=== PATIENT | male | born 1990 | race Caucasian/White ===

== ENCOUNTER 2022-06-28 22:32 | Emergency (ER) | payer SELFPAY ==
[2022-06-28 22:28] VITALS: BP 152/101; PULSE 108; RESP 16; TEMP 36.7; O2SAT 99
--- NOTE | 2022-06-28 22:49 | ED.ALCOHOL ---
HPI - Alcohol General Chief Complaint: Alcohol Stated Complaint: etoh intoxication History of Present Illness HPI narrative: 31-year-old male no medical problems presents to the emergency room for evaluation EtOH intoxication. Patient was [place] intoxicated by local law enforcement. Patient stated that he had had too much to drink tonight and vomited multiple times. Patient denies any injuries. Patient is alert and oriented x3, able to verbalize where he is and able to call family to be at the bedside. Patient denies taking any recreational drugs. Related Data Allergies Allergy/AdvReac Type Severity Reaction Status Date / Time No Known Allergies Allergy Mild Verified 05/13/08 14:46 Review of Systems Review of Systems: CONSTITUTIONAL: Denies fever, chills, or sweats. EYES: Denies visual changes, redness, or discharge. ENT: Denies rhinorrhea, congestion, sore throat, or otalgia. CARDIOVASCULAR: Denies chest pain, palpitations, or edema. RESPIRATORY: Denies cough or dyspnea. GASTROINTESTINAL: Denies abdominal pain, nausea, vomiting, or diarrhea. GENITOURINARY: Denies dysuria or hematuria. SKIN: Denies rash or itching. MUSCULOSKELETAL: Denies back pain, joint pain, or myalgia. NEUROLOGIC: Denies headache, numbness, dizziness, or weakness. PSYCHIATRIC: Denies anxiety or depression. Exam Narrative: GENERAL: Well-appearing, well-nourished, no physical limitations, and in no acute distress. HEAD: Normocephalic, atraumatic. EYES: Conjunctivae normal, PERRLA and EOMI. CHEST: Clear to auscultation. No respiratory distress. No wheezes rales or rhonchi. HEART: Regular rate and rhythm. No murmur heard. Normal peripheral pulses. ABDOMEN: Soft, nontender, nondistended, normal active bowel sounds.M EXTREMITIES: Normal range of motion. No edema. No clubbing or cyanosis SKIN: Warm, dry, no rash. No noted wounds NEURO: No focal deficits. Alert and oriented x3. MAEW. CN's II-XI intact bilaterally, normal gait PSYCH: Cooperative. Normal mood and affect. Course Course Emergency Course: 2300: Patient's is at the bedside. She is agreeable to drive the patient home. Vital Signs Vital signs: Vital Signs Temperature 36.7 C 06/28/22 22:28 Pulse Rate 108 H 06/28/22 22:28 Respiratory Rate 16 06/28/22 22:28 Blood Pressure 152/101 H 06/28/22 22:28 Pulse Oximetry 99 06/28/22 22:28 Oxygen Delivery Room Air 06/28/22 22:28 Temperature 36.7 C 06/28/22 22:28 Pulse Rate 108 H 06/28/22 22:28 Respiratory Rate 16 06/28/22 22:28 Blood Pressure 152/101 H 06/28/22 22:28 Pulse Oximetry 99 06/28/22 22:28 Oxygen Delivery Room Air 06/28/22 22:28 MDM - Alcohol Lab Data Labs: Lab Results 06/28/22 Range/Units 22:37 Ethyl Alcohol Pending Discharge Plan Discharge Clinical Impression: Alcoholic intoxication Patient Disposition: Home, Self-Care Condition: Stable Instructions: Antibiotic Form Follow-up/Referrals: Umang Shay MD [Primary Care Provider] - Time of Disposition: 22:56
[2022-06-28 23:30] LABS: Ethanol 278 mg/dL (<10)
== END 2022-06-28 23:18 | disposition home or self-care (01) ==
PROVIDERS: Emergency Provider Nurse Practitioner Family; PCP Psychiatry & Neurology Neurology
DX: F10.129 Alcohol abuse with intoxication, unspecified (principal); Y90.9 Presence of alcohol in blood, level not specified
CPT/HCPCS: 36415; 80307; 99283